=== PATIENT | male | born 1970 | race Caucasian/White ===

== ENCOUNTER 2016-12-19 08:40 | Emergency (ER) | payer MEDICAID ==
[~2016-12-19] VITALS: Ht 172.7 cm; Wt 73.4 kg
[2016-12-19 08:51] VITALS: BP 101/69
[2016-12-19] MEDS ORDERED: GABA300C10 PO (09:00)
== END 2016-12-19 09:19 | disposition home or self-care (01) ==
LOC: ED 09:14
DX: J69.0 Pneumonitis due to inhalation of food and vomit (principal); Z76.0 Encounter for issue of repeat prescription
CPT/HCPCS: 99283

== ENCOUNTER 2017-09-06 04:59 | Emergency (ER) | payer MEDICAID ==
[~2017-09-06] VITALS: Ht 172.7 cm; Wt 76.7 kg
[~2017-09-06 04:59] MED LIST: GABA300C10 PO
[2017-09-06 05:00] VITALS: BP 116/82
== END 2017-09-06 06:11 | disposition home or self-care (01) ==
LOC: ED 05:30
DX: H66.002 Acute suppurative otitis media without spontaneous rupture of ear drum, left ear (principal); F17.210 Nicotine dependence, cigarettes, uncomplicated
CPT/HCPCS: 99283

== ENCOUNTER 2017-12-27 14:42 | Emergency (ER) | payer MEDICAID ==
[~2017-12-27] VITALS: Ht 172.7 cm; Wt 76.2 kg
[2017-12-27 14:54] VITALS: BP 114/72
== END 2017-12-27 16:09 | disposition home or self-care (01) ==
LOC: ED 16:03
DX: S60.221A Contusion of right hand, initial encounter (principal); G89.11 Acute pain due to trauma; W04.XXXA Fall while being carried or supported by other persons, initial encounter; Y93.89 Activity, other specified; Y92.89 Other specified places as the place of occurrence of the external cause; Y99.8 Other external cause status
CPT/HCPCS: 29260; 99284

== ENCOUNTER 2018-08-26 07:32 | Emergency (ER) | payer MEDICAID, OTHER ==
[~2018-08-26] VITALS: Ht 172.7 cm; Wt 76.5 kg
[2018-08-26 07:38] VITALS: BP 106/73
[2018-08-26 08:41] LABS: RAPID INFLUENZA A Negative (Negative); RAPID INFLUENZA B Negative (Negative)
== END 2018-08-26 09:09 | disposition home or self-care (01) ==
LOC: ED 09:03
DX: B34.9 Viral infection, unspecified (principal)
CPT/HCPCS: 71046; 87400; 99284